=== PATIENT | female | born 1970 | race Caucasian/White ===

== ENCOUNTER 2016-05-03 20:32 | Emergency (ER) | payer MEDICAID ==
[~2016-05-03] VITALS: Ht 165.1 cm; Wt 63.5 kg
[2016-05-03 20:43] VITALS: BP 121/76; PULSE 107; RESP 18; TEMP 98.8; O2SAT 100
--- NOTE | 2016-05-03 21:43 | NUR ---
Patient to ER bed 2 to gown for evaluation. Side rails up. Report given to CLIFTON Coronado.
--- NOTE | 2016-05-03 21:45 | NUR ---
Pt brought by partner,A&Ox4, pt c/o cough, fever and chest wall pain 08/01 since today, skin pink and warm, O2 100 %, VSS, pt denies N/V, current temp 98.9, radial pulses equal and strong.
--- NOTE | 2016-05-03 22:43 | NUR ---
Cooling measures started due to fever 101.6
[2016-05-03] MEDS ORDERED: ACETAMINOPHEN 325 MG TABLET ONE (22:44)
--- NOTE | 2016-05-03 22:44 | NUR ---
Pt's temp 101.6, notified ,Tylenol 650 mg administered PO.
--- NOTE | 2016-05-03 22:52 | NUR ---
Dr Pratt at bedside examining patient
--- NOTE | 2016-05-03 22:58 | NUR ---
Report given to Gregg LAZO.
--- NOTE | 2016-05-03 23:05 | NUR ---
Influenza sample sent to lab.
--- NOTE | 2016-05-03 23:05 | NUR ---
Pt is resting comfortably in bed. Pt is slightly tachycardic with a fever. Will continue to monitor via youth nutritional monitor. No distress noted.
--- NOTE | 2016-05-03 23:05 | NUR ---
Sepsis protocol reviewed with Dr. Pratt. No initation at this time.
--- NOTE | 2016-05-03 23:35 | NUR ---
Oral temp is 102.8. Pt given two ice packs axillary. Pt made aware not use her blanket. Dr. Pratt made aware.
[2016-05-03] MEDS ORDERED: NACL 0.9% 1,000 ML IV SCH (23:40)
--- NOTE | 2016-05-03 23:43 | NUR ---
Sepsis protocol activated by Dr. Pratt.
[2016-05-03] MEDS ORDERED: PROMETHAZINE 6.25 MG/ CODEINE 10 MG/ 5 ML PO ONE (23:45)
[2016-05-03] MEDS ORDERED: cefTRIAXone 1 GM IVPB PREMIX 50 ML IV ONE (23:45)
--- NOTE | 2016-05-04 00:10 | NUR ---
# 20 gauge angiocath placed to L AC. Use of asceptic technique. Opsite placed over site. Blood return noted. Flushed with 10 cc of normal saline. No evidence of infiltration noted. Patient tolerated well.
[2016-05-04 00:23] LABS: BASOPHILS # (AUTO) 0.1 K/uL (0.0-0.2); EOSINOPHILS # (AUTO) 0.1 K/uL (0.0-0.4); EOSINOPHILS % (AUTO) 1.9 % (0.0-4.0); HEMATOCRIT 35.7 % (36-48); HEMOGLOBIN 12.5 g/dL (12.0-16.0); LYMPHOCYTES # (AUTO) 0.5 K/uL (1.0-5.5); LYMPHOCYTES % (AUTO) 7.7 % (20.5-51.5); MEAN CORPUSCULAR HEMOGLOBIN 32 pg (27-31); MEAN CORPUSCULAR HGB CONC 35 % (32-36); MEAN CORPUSCULAR VOLUME 90 fL (79.0-98.0); MONOCYTES # (AUTO) 0.4 K/uL (0.0-1.0); MONOCYTES % (AUTO) 5.3 % (1.7-9.3); NEUTROPHILS # (AUTO) 5.9 K/uL (1.8-7.7); NEUTROPHILS % (AUTO) 84.1 % (40.0-70.0); PLATELET COUNT (AUTO) 180 K/uL (130-430); RED BLOOD CELL COUNT(AUTO) 3.96 MIL/uL (4.2-6.2); RED CELL DISTRIBUTION WIDTH 12.5 % (9.0-15.0)
[2016-05-04] MEDS ORDERED: IBUPROFEN 600 MG TABLET PO ONE (00:30)
[2016-05-04 00:31] LABS: CALCIUM 8.7 mg/dL (8.4-11.0); CREATININE 1.01 mg/dL (0.55-1.30); POTASSIUM 3.3 mmol/L (3.5-5.1)
[2016-05-04 00:38] LABS: ALBUMIN 3.6 g/dL (3.4-4.8); TOTAL BILIRUBIN 0.3 mg/dL (0.0-1.0); TOTAL PROTEIN, SERUM 7.4 g/dL (6.4-8.3)
[2016-05-04] MEDS ORDERED: MORPHINE 2 MG/ML INJ. SYRINGE IVP ONE (01:00)
[2016-05-04 02:00] VITALS: BP 100/56; PULSE 84; RESP 18; TEMP 99.2; O2SAT 100
--- NOTE | 2016-05-04 02:00 | NUR ---
Patient given written and verbal discharge instructions and verbalizes understanding. ER MD discussed with patient the results and treatment provided. Patient in stable condition. ID arm band removed. IV catheter removed intact and dressing applied, no active bleeding. Rx of Z-Stalin and Phenergan with codeine given. Patient educated on pain management and to follow up with PMD. Pain Scale 0/10. Opportunity for questions provided and answered.
== END 2016-05-04 02:00 | disposition home or self-care (01) ==
LOC: SED 20:32
DX: J98.8 Other specified respiratory disorders (principal); R51 Headache; R50.9 Fever, unspecified
CPT/HCPCS: 36415; 71010; 80053; 83605; 85025; 86710; 87040; 96365; 96375; 99285; J0696; J2270; J7030